=== PATIENT | male | born 2000 | race African-American/Black ===

== ENCOUNTER 2023-12-09 14:21 | Emergency (ER) | payer OTHER ==
[~2023-12-09] VITALS: Ht 188 cm; Wt 100.0 kg
[2023-12-09 14:29] VITALS: TEMP 98.8
[2023-12-09] MEDS: DiphenhydrAMINE HCL 50 MG/ML VIAL IVP ONE (14:59)
[2023-12-09] MEDS ORDERED: 0.9% SODIUM CHLORIDE 5 ML NEB SOLUTION NEB ONE (14:59)
[2023-12-09] MEDS: FAMOTIDINE 20 MG/2 ML VIAL IVP ONE (14:59)
[2023-12-09] MEDS: MethylPREDNISolone SOD SUCC 125 MG/2 ML VIAL IVP ONE (15:00)
[2023-12-09] MEDS: ALBUTEROL SULFATE 2.5 MG/0.5 ML NEB SOLUTION NEB ONE (15:00)
[2023-12-09 15:03] VITALS: PULSE 74; PULSE 76; RESP 20; O2SAT 96
[2023-12-09 15:15] VITALS: PULSE 56; RESP 20; O2SAT 99
[2023-12-09 16:22] VITALS: BP 115/72; PULSE 67; RESP 18
[2023-12-09] MEDS ORDERED: ALBU18HF12 IH (17:29)
== END 2023-12-09 17:40 | disposition home or self-care (01) ==
LOC: EMS 14:21
DX: T78.40XA Allergy, unspecified, initial encounter (principal); J45.909 Unspecified asthma, uncomplicated; X58.XXXA Exposure to other specified factors, initial encounter
CPT/HCPCS: 99285; 96374; 96375; 94640; J1200; J3490; J2919

== ENCOUNTER 2024-05-02 18:33 | Emergency (ER) | payer MEDICAID ==
[~2024-05-02] VITALS: Ht 182.9 cm; Wt 93.0 kg
[~2024-05-02 18:33] MED LIST: ALBU18HF12 IH
[2024-05-02 18:47] VITALS: TEMP 98.3
[2024-05-02] MEDS: FLUORESCEIN SODIUM 1 MG STRIP OS ONE (19:07)
[2024-05-02] MEDS: PROPARACAINE HCL 0.5% 15 ML OPHTHALMIC SOLUTION OS ONE (19:07)
[2024-05-02] MEDS ORDERED: POLYOS OS (19:24)
[2024-05-02] MEDS: POLYMYXIN B/TRIMETHOPRIM 10 ML OPHTHALMIC SOLUTION OS ONE (19:31)
[2024-05-02 19:41] VITALS: BP 109/77; PULSE 69; RESP 15; O2SAT 98
== END 2024-05-02 19:50 | disposition home or self-care (01) ==
LOC: EMS 18:33
DX: H10.9 Unspecified conjunctivitis (principal); J45.909 Unspecified asthma, uncomplicated
CPT/HCPCS: 99283